=== PATIENT | male | born 1995 | race Two or more races ===

== ENCOUNTER 2017-12-27 22:55 | Emergency (ER) | payer OTHER ==
[~2017-12-27] VITALS: Ht 180.3 cm; Wt 86.2 kg
[2017-12-28] MEDS ORDERED: CIPRO500 MG PO (05:59)
[2017-12-28] MEDS ORDERED: ZOFRAN4 MG PO (06:01)
== END 2017-12-28 06:08 | disposition home or self-care (01) ==
LOC: ER 22:55
DX: K52.89 Other specified noninfective gastroenteritis and colitis (principal)

== ENCOUNTER 2018-02-25 07:05 | Emergency (ER) | payer OTHER ==
[~2018-02-25] VITALS: Ht 180.3 cm; Wt 89.4 kg
[~2018-02-25 07:05] MED LIST: CIPRO500 MG PO; ZOFRAN4 MG PO
== END 2018-02-25 14:22 | disposition home or self-care (01) ==
LOC: ER 07:05
DX: R10.13 Epigastric pain (principal); R11.2 Nausea with vomiting, unspecified; M54.89 Other dorsalgia